=== PATIENT | female | born 1965 | race Caucasian/White ===

== ENCOUNTER 2017-05-08 10:49 | Emergency (ER) | payer OTHER ==
[~2017-05-08] VITALS: Ht 160 cm; Wt 80.5 kg
[~2017-05-08 10:49] MED LIST: ACET1TAB40 PO; BEN25 PO; BEN50 PO; CIPR500T4 PO; CLIN-73 PO; DIPH25CA6 PO; ELIM TOP; HC30CR25 TOP; HYDR-3011 PO; HYDR-3498 PO; HYDR-842 PO; IBUP-1542 PO; IVER3TAB2 PO; MOME13HF IH; PERM120L5 TP
[2017-05-08 10:53] VITALS: Ht 160 cm; Wt 80.5 kg
[2017-05-08] MEDS ORDERED: KETOROLAC 60 MG INJ IM STA (11:19)
[2017-05-08] MEDS ORDERED: morphine 10 MG INJ IM ONE (11:30)
[2017-05-08 11:38] LABS: URINE BLOOD (Dip) POC 2+ (NEGATIVE)
--- NOTE | 2017-05-08 11:56 | ERD ---
ER Documentation Chief Complaint Date/Time DATE: 05/08/17 TIME: 11:48 Chief Complaint COMPLAINING OF LOWER BACK PAIN AND BURNING WITH URINATION HPI This 51-year-old female with history of lupus comes in because she has had burning on urination for the last 3 days as well as some hematuria. She has gotten urinary tract infections in the past that felt the same way. She has mild suprapubic pain as well. She also complains that her sciatica is flaring up. She has pain in the middle of her buttock that shoots down her posterior leg to just above the knee. No new trauma or injuries. She has not had any fevers or chills. ROS All systems reviewed and are negative except as per history of present illness. Medications Home Meds Active Scripts Diphenhydramine Hcl* (Benadryl*) 50 Mg Cap, 50 MG PO Q6H Y for ITCHING/RASH, # 30 CAP Prov:PERRI ENNIS PA-C 08/30/16 Permethrin* (Elimite*) 5% Cr, 1 APPLIC TOP ONCE, #1 TUB 3 Refills Prov:PERRI ENNIS PA-C 08/30/16 Ciprofloxacin Hcl* (Ciprofloxacin Hcl*) 500 Mg Tablet, 500 MG PO BID for 7 Days , TAB Prov:PERRI ENNIS PA-C 08/30/16 Permethrin (Permethrin) 118 Ml Liquid, 118 ML TP QHS for 1 Day, EA Prov:ARAVIND LIMA 05/10/16 Clindamycin Hcl* (Clindamycin Hcl*) 300 Mg Capsule, 300 MG PO TID for 10 Days, CAP Prov:ARAVIND LIMA 05/10/16 Hydrocodone Bit-Acetaminophen* ([place]*) 5-325 Mg Tab, 1 TAB PO Q6 Y for PAIN, # 10 TAB Prov:ARAVIND LIMA 05/10/16 Ibuprofen* (Motrin*) 600 Mg Tab, 600 MG PO Q6, #30 TAB Prov:DON ZENG PA-C 04/30/16 Acetaminophen-Codeine* (Acetaminophen-Cod #3*) 300-30 Mg Tab, 1 TAB PO Q4H Y for PAIN, #10 TAB Prov:DON ZENG PA-C 04/30/16 Clindamycin Hcl* (Clindamycin Hcl*) 300 Mg Capsule, 300 MG PO Q6 for 10 Days, CAP Prov:DON ZENG PA-C 04/30/16 Diphenhydramine Hcl* (Diphenhydramine Hcl*) 25 Mg Capsule, 25 MG PO Q6 Y for ITCHING, #14 CAP Prov:JAMIE CARRILLO DO 03/31/16 Permethrin* (Elimite*) 5% Cr, 1 APPLIC TOP ONCE for 1 Day, TUB Prov:JAMIE CARRILLO DO 03/31/16 Hydroxyzine Hcl* (Atarax*) 25 Mg Tab, 25 MG PO Q6H Y for ITCHING for 3 Days, TAB Prov:ARAVIND LIMA 03/26/16 Permethrin (Permethrin) 118 Ml Liquid, 118 ML TP QHS for 2 Days, EA Prov:ARAVIND LIMA 03/26/16 Diphenhydramine Hcl* (Benadryl*) 25 Mg Cap, 25 MG PO Q6 Y for ITCHING/RASH, #30 TAB Prov:WINSOME KEBEDE MD 03/11/16 Permethrin* (Elimite*) 5% Cr, 1 APPLIC TOP ONCE, #1 TUB Prov:WINSOME KEBEDE MD 03/11/16 Hydroxyzine Hcl* (Hydroxyzine Hcl*) 25 Mg Tablet, 25 MG PO Q8H Y for ITCHING, # 30 TAB Prov:MANNY RUSSELL PA-C 02/22/16 Ivermectin* (Stromectol*) 3 Mg Tab, 3 MG PO DAILY, #1 TAB Prov:MANNY RUSSELL PA-C 02/22/16 Hydrocortisone* Topical (Hydrocortisone* Topical) 2.5%-28.3 Gm Cream..g., 1 APPLIC TOP BID for 7 Days, TUB Prov:BRIE COLIN PA-C 02/18/16 Ibuprofen* (Motrin*) 600 Mg Tab, 600 MG PO Q6H Y for PAIN AND OR ELEVATED TEMP, #30 TAB Prov:JOSE SADLER NP 01/29/16 Mometasone-Formoterol (Dulera) 200-5 Mcg/Inh - 13 Gm Hfa.aer.ad, 2 PUFFS IH BID for 30 Days, EA Prov:ARAVIND LIMA 06/11/15 Allergies Allergies: Coded Allergies: Latex, Natural Rubber (Verified Allergy, Mild, ITCH, 08/30/16) Penicillins (Unverified Allergy, Unknown, 08/30/16) PMhx/Soc History of Surgery: No Anesthesia Reaction: No Hx Neurological Disorder: No Hx Respiratory Disorders: No Hx Cardiac Disorders: No Hx Psychiatric Problems: No Hx Miscellaneous Medical Probl: No Hx Alcohol Use: No Hx Substance Use: No Hx Tobacco Use: No Physical Exam Vitals Vital Signs Date Time Temp Pulse Resp B/P Pulse Ox O2 Delivery O2 Flow Rate FiO2 05/08/17 10:53 98.3 80 18 129/82 99 Physical Exam Const: [] No distress Head: Atraumatic Eyes: Normal Conjunctiva ENT: Normal External Ears, Nose and Mouth. Neck: Full range of motion..~ No meningismus. Resp: Clear to auscultation bilaterally Cardio: Regular rate and rhythm, no murmurs Abd: Soft, very mild suprapubic pain without guarding or rebound, non distended. Normal bowel sounds Skin: No petechiae or rashes Back: No midline or flank tenderness, tenderness to right middle buttock area. Ext: No cyanosis, or edema Neur: Awake and alert oriented 3, no focal deficit Psych: Normal Mood and Affect Results 24 hrs Laboratory Tests Test 05/08/17 11:43 Bedside Urine pH (LAB) 6.0 Bedside Urine Protein (LAB) 2+ Bedside Urine Glucose (UA) Negative Bedside Urine Ketones (LAB) Negative Bedside Urine Blood 2+ Bedside Urine Nitrite (LAB) Negative Bedside Urine Leukocyte Esterase (L 1+ Current Medications Medications (Trade) Dose Ordered Sig/Jacinda Route PRN Reason Start Time Stop Time Status Last Admin Dose Admin Ketorolac Tromethamine (Toradol) 60 mg ONCE STAT IM 05/08/17 11:19 05/08/17 11:21 DC Morphine Sulfate (morphine) 4 mg ONCE ONCE IM 05/08/17 11:30 05/08/17 11:31 DC Procedures/MDM UTI patient with lupus as well as apparent piriformis syndrome with sciatica. She was given IM injection of Toradol as well as morphine in the emergency room which helped her pain greatly. Going to discharge her for the sciatica with Robaxin, naproxen, [place]. For the UTI I am going to discharge with Macrobid and Cipro. Return precautions for any fever chills or nonresolution of symptoms. Primary care follow-up in 1-2 days. Departure Diagnosis: Primary Impression: UTI (urinary tract infection) Additional Impressions: Piriformis syndrome of right side Sciatica of right side Condition: Stable HARIS OCHOA DO May 08, 2017 11:56
[2017-05-08] MEDS ORDERED: NITR-58 PO (12:15)
[2017-05-08] MEDS ORDERED: CIPR500T4 PO (12:15)
[2017-05-08] MEDS ORDERED: METH500T PO (12:15)
[2017-05-08] MEDS ORDERED: HYDR-905 PO (12:15)
[2017-05-08] MEDS ORDERED: NAPR-685 PO (12:15)
[2017-05-08 12:27] VITALS: BP 128/92; PULSE 70; RESP 18; TEMP 97.9
== END 2017-05-08 12:28 | disposition home or self-care (01) ==
LOC: FTE 10:49
DX: N39.0 Urinary tract infection, site not specified (principal); G57.01 Lesion of sciatic nerve, right lower limb; M54.41 Lumbago with sciatica, right side; Z91.040 Latex allergy status
CPT/HCPCS: 81003; 96372; J1885; J2270; Z7502

== ENCOUNTER 2017-12-05 09:41 | Emergency (ER) | END 2017-12-05 10:45 | disposition home or self-care (01) ==

== ENCOUNTER 2018-09-29 11:36 | Emergency (ER) | END 2018-09-29 12:06 | disposition home or self-care (01) ==

== ENCOUNTER 2019-01-30 15:48 | Emergency (ER) | payer SELFPAY ==
[~2019-01-30] VITALS: Ht 154.9 cm; Wt 84.0 kg
[~2019-01-30 15:48] MED LIST changes: +AMOX500C2 PO; +CITA40TA6 PO; -CLIN-73 PO; +CLIN300C10 PO; +FLUT9.9S NASAL; -HYDR-3011 PO; +HYDR-4012 PO; +HYDR-843 PO; +LISI-471 PO; +METH500T PO; +NAPR-685 PO; +NITR-58 PO
[2019-01-30 16:03] VITALS: BP 125/78; PULSE 85; RESP 20; Ht 154.9 cm; Wt 84.0 kg
[2019-01-30] MEDS ORDERED: IBUPROFEN 600 MG TAB PO ONE (17:30)
[2019-01-30] MEDS ORDERED: IBUP-1542 PO (17:39)
--- NOTE | 2019-01-30 18:53 | ERD ---
ER Documentation Chief Complaint Chief Complaint c/o pain on left 3rd finger after injuring it HPI This is a 53-year old female with history of anxiety, lupus presents to the ED complaining of left third finger pain after removing a ring just prior to arrival. Patient reports a 10 out of 10 burning type pain to her left third finger. She reports associated swelling and pain with movement of that finger. She denies pain to her left third finger. States pain shoots towards her left elbow. Denies any numbness, tingling, focal weakness. No other injuries reported. ROS All systems reviewed and are negative except as per history of present illness. Medications Home Meds Active Scripts Ibuprofen* (Motrin*) 600 Mg Tab, 600 MG PO Q6H PRN for PAIN AND OR ELEVATED TEMP , #30 TAB Prov:JULIEN FARLEY PA-C 01/30/19 Lisinopril* (Lisinopril*) 20 Mg Tablet, 20 MG PO DAILY, #30 TAB Prov:PERRI ENNIS PA-C 12/01/18 Citalopram Hydrobromide* (Citalopram Hydrobromide*) 40 Mg Tablet, 40 MG PO DAILY, #30 TAB Prov:PERRI ENNIS PA-C 12/01/18 Citalopram Hydrobromide* (Citalopram Hydrobromide*) 40 Mg Tablet, 40 MG PO DAILY, #30 TAB Prov:CHADWICK SWARTZ PA-C 09/29/18 Ibuprofen* (Motrin*) 600 Mg Tab, 600 MG PO Q6H PRN for PAIN AND OR ELEVATED TEMP, #30 TAB Prov:MANNY RUSSELL PA-C 12/05/17 Fluticasone Propionate (Flonase Allergy Relief) 9.9 Ml [place].susp, 1 SPRAY NASAL BID, #1 BOTTLE TO EACH NOSTRIL Prov:MANNY RUSSELL PA-C 12/05/17 Diphenhydramine Hcl* (Benadryl*) 25 Mg Cap, 25-50 MG PO Q6 PRN for ITCHING/RASH, #30 TAB Prov:MANNY RUSSELL PA-C 12/05/17 Amoxicillin* (Amoxicillin*) 500 Mg Cap, 500 MG PO TID for 7 Days, CAP Prov:MANNY RUSSELL PA-C 12/05/17 Methocarbamol* (Robaxin*) 500 Mg Tab, 500 MG PO Q8, #14 TAB Prov:HARIS OCHOA DO 05/08/17 Naproxen* (Naproxen*) 375 Mg Tablet, 375 MG PO BID PRN for PAIN, #20 TAB Prov:HARIS OCHOA DO 05/08/17 Hydrocodone/Acetaminophen ([place] 7.5-325 Tablet) 1 Each Tablet, 1 EACH PO Q6, #20 TAB Prov:HARIS OCHOA 05/08/17 Ciprofloxacin Hcl* (Ciprofloxacin Hcl*) 500 Mg Tablet, 500 MG PO BID for 5 Days, TAB Prov:HARIS OCHOA 05/08/17 Nitrofurantoin Monohyd Macrocr* (Macrobid*) 100 Mg Capsr, 100 MG PO BID for 5 Days, CAP Prov:HARIS OCHOA DO 05/08/17 Diphenhydramine Hcl* (Benadryl*) 50 Mg Cap, 50 MG PO Q6H PRN for ITCHING/RASH, #30 CAP Prov:PERRI ENNIS PA-C 08/30/16 Permethrin* (Elimite*) 5% Cr, 1 APPLIC TOP ONCE, #1 TUB 3 Refills Prov:PERRI ENNIS PA-C 08/30/16 Ciprofloxacin Hcl* (Ciprofloxacin Hcl*) 500 Mg Tablet, 500 MG PO BID for 7 Days, TAB Prov:PERRI ENNIS PA-C 08/30/16 Permethrin (Permethrin) 118 Ml Liquid, 118 ML TP QHS for 1 Day, EA Prov:ARAVIND LIMA 05/10/16 Clindamycin Hcl* (Clindamycin Hcl*) 300 Mg Capsule, 300 MG PO TID for 10 Days, CAP Prov:ARAVIND LIMA 05/10/16 Hydrocodone Bit-Acetaminophen* ([place]*) 5-325 Mg Tab, 1 TAB PO Q6 PRN for PAIN, #10 TAB Prov:ARAVIND LIMA 05/10/16 Ibuprofen* (Motrin*) 600 Mg Tab, 600 MG PO Q6, #30 TAB Prov:DON ZENG PA-C 04/30/16 Acetaminophen-Codeine* (Acetaminophen-Cod #3*) 300-30 Mg Tab, 1 TAB PO Q4H PRN for PAIN, #10 TAB Prov:DON ZENG PA-C 04/30/16 Clindamycin Hcl* (Clindamycin Hcl*) 300 Mg Capsule, 300 MG PO Q6 for 10 Days, CAP Prov:DON ZENG PA-C 04/30/16 Diphenhydramine Hcl* (Diphenhydramine Hcl*) 25 Mg Capsule, 25 MG PO Q6 PRN for ITCHING, #14 CAP Prov:JAMIE CARRILLO DO 03/31/16 Permethrin* (Elimite*) 5% Cr, 1 APPLIC TOP ONCE for 1 Day, TUB Prov:JAMIE CARRILLO 03/31/16 Hydroxyzine Hcl* (Atarax*) 25 Mg Tab, 25 MG PO Q6H PRN for ITCHING for 3 Days, TAB Prov:ARAVIND LIMA 03/26/16 Permethrin (Permethrin) 118 Ml Liquid, 118 ML TP QHS for 2 Days, EA Prov:ARAVIND LIMA 03/26/16 Diphenhydramine Hcl* (Benadryl*) 25 Mg Cap, 25 MG PO Q6 PRN for ITCHING/RASH, #30 TAB Prov:WINSOME KEBEDE MD 03/11/16 Permethrin* (Elimite*) 5% Cr, 1 APPLIC TOP ONCE, #1 TUB Prov:WINSOME KEBEDE MD 03/11/16 Hydroxyzine Hcl* (Hydroxyzine Hcl*) 25 Mg Tablet, 25 MG PO Q8H PRN for ITCHING, #30 TAB Prov:MANNY RUSSELL PA-C 02/22/16 Ivermectin* (Stromectol*) 3 Mg Tab, 3 MG PO DAILY, #1 TAB Prov:MANNY RUSSELL PA-C 02/22/16 Hydrocortisone* Topical (Hydrocortisone* Topical) 2.5%-28.3 Gm Cream..g., 1 APPLIC TOP BID for 7 Days, TUB Prov:BRIE COLIN PA-C 02/18/16 Ibuprofen* (Motrin*) 600 Mg Tab, 600 MG PO Q6H PRN for PAIN AND OR ELEVATED TEMP, #30 TAB Prov:JOSE SADLER. BLOCK PRESS OPERATOR 01/29/16 Mometasone-Formoterol (Dulera) 200-5 Mcg/Inh - 13 Gm Hfa.aer.ad, 2 PUFFS IH BID for 30 Days, EA Prov:ARAVIND LIMA Barrera 06/11/15 Allergies Allergies: Coded Allergies: Latex, Natural Rubber (Verified Allergy, Mild, ITCH, 08/30/16) Penicillins (Unverified Allergy, Unknown, 08/30/16) PMhx/Soc History of Surgery: No Anesthesia Reaction: No Hx Neurological Disorder: No Hx Respiratory Disorders: No Hx Cardiac Disorders: Yes (HTN) Hx Psychiatric Problems: Yes (panic attacks) Hx Miscellaneous Medical Probl: No Hx Alcohol Use: No Hx Substance Use: No Hx Tobacco Use: No Smoking Status: Never smoker Physical Exam Vitals Vital Signs Date Temp Pulse Resp B/P (MAP) Pulse Ox O2 O2 Flow FiO2 Time Delivery Rate 01/30/19 36.7 17:29 01/30/19 98.1 85 20 125/78 99 16:03 (94) Physical Exam Const: + She is appearing, mild distress Head: Atraumatic Eyes: Normal Conjunctiva ENT: Normal External Ears, Nose and Mouth. Neck: Full range of motion. No meningismus. Skin: No petechiae or rashes Upper Extremity -left Skin: No laceration, or evidence of external trauma Compartments: Soft Motor: Full active range of motion shoulder/elbow/wrist/hand Sensation: Intact shoulder/pinky/middle finger/thumb web space Bones: Nontender humerus/elbow/forearm/wrist/hand Snuffbox: Nontender Joints: No effusion Pulses/Perfusion: 2+ radial, Capillary refill < 2 seconds Neur: Awake and alert Psych: Normal Mood and Affect Results 24 hrs Current Medications Medications Dose Sig/Jacinda Start Time Status Last (Trade) Ordered Route PRN Stop Time Admin Dose Reason Admin Ibuprofen 600 mg ONCE ONCE 01/30/19 DC 01/30/19 (Motrin) PO 17:30 01/30/19 17:29 17:31 Procedures/MDM PROCEDURES: Splint Assessment: Neurovascularly intact post splint placement with good fit. ED COURSE: The patient was given ibuprofen The medication was well tolerated and the patient had market improvement in symptoms. The patient remained stable throughout ED course. MEDICAL DECISION MAKING: This is a 53-year-old female with history of lupus presents to the ED complaining of left third finger pain status post pulling out her ring. Patient's physical exam is unremarkable. I do not think this is related to her lupus flares. She was given Motrin here with improvement of pain. I do not think she needs any x-ray imaging as mechanism of injury is not concerning for any acute fracture or dislocation. Finger splint was provided for comfort. She was neurovascularly intact and hemodynamically stable. 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 No evidence of compartment syndrome, neurologic injury, vascular injury, open joint, open fracture, tendon laceration, or foreign body. PRESCRIPTIONS: Ibuprofen SPECIALIST FOLLOW UP RECOMMENDED: None Patient has been advised to follow up with primary care in 1-2 days. Departure Diagnosis: Primary Impression: Pain of finger Laterality: left Qualified Codes: M79.645 - Pain in left finger(s) Condition: Stable Patient Instructions: Finger Contusion Referrals: [facility] JOHANN [email or web address].CLon (PCP) Additional Instructions: Call your primary care doctor TOMORROW for an appointment during the next 2-4 days and bring all the information and medications prescribed. If the symptoms get worse and your provider is unavailable, return to the Emergency Department immediately. JULIEN FARLEY PA-C Jan 30, 2019 18:53
== END 2019-01-30 19:16 | disposition home or self-care (01) ==
LOC: FTE 15:48
DX: M79.645 Pain in left finger(s) (principal); I10 Essential (primary) hypertension